=== PATIENT | female | born 1985 | race Caucasian/White ===

== ENCOUNTER 2019-04-07 15:15 | Emergency (ER) | payer MEDICAID ==
[~2019-04-07] VITALS: Ht 154.9 cm; Wt 76.7 kg
[2019-04-07 15:23] VITALS: Ht 154.9 cm; Wt 76.7 kg
[2019-04-07 15:57] VITALS: BP 127/88
== END 2019-04-07 15:57 | disposition home or self-care (01) ==
LOC: ED 15:15
DX: J40 Bronchitis, not specified as acute or chronic (principal)